=== PATIENT | female | born 1940 | race Caucasian/White ===

== ENCOUNTER 2018-03-23 12:30 | Emergency (ER) | payer MEDICARE ==
[~2018-03-23] VITALS: Ht 170.2 cm; Wt 73.0 kg
[~2018-03-23 12:30] MED LIST: ALLEGRA60 MG PO; CALTRATE 602 PO; CVS ALLERGY REL10 MG PO; DEPAKOTE SPRIN125 MG PO; EXCEDRIN MIGRAINE PO; MOTRIN800 MG/TAB PO; MULTIVITAMIN PO; SIMVASTATIN40 MG PO; TYLENOL 500MG TAB PO; VAGIFEM10 MCG VA; [UNRECOGNIZED DRUG - OTHER]
[2018-03-23] MEDS ORDERED: DIVALPROEX125 M1 PO (13:02)
[2018-03-23] MEDS ORDERED: MONTELUKAST SOD10 MG PO (13:02)
[2018-03-23] MEDS ORDERED: MULTI VIT PO (13:04)
[2018-03-23 15:00] VITALS: BP 134/86
== END 2018-03-23 15:00 | disposition home or self-care (01) ==
LOC: ED 12:30
DX: S40.011A Contusion of right shoulder, initial encounter (principal); M54.5 Low back pain; W10.9XXA Fall (on) (from) unspecified stairs and steps, initial encounter

== ENCOUNTER 2021-06-02 08:44 | Emergency (ER) | payer MEDICARE ==
[~2021-06-02] VITALS: Ht 170.2 cm; Wt 76.0 kg
[~2021-06-02 08:44] MED LIST changes: +DIVALPROEX125 M1 PO; +MONTELUKAST SOD10 MG PO; +MULTI VIT PO
[2021-06-02 11:17] VITALS: BP 125/83
== END 2021-06-02 11:17 | disposition home or self-care (01) ==
LOC: ED 08:44
PROC: 2Y41X5Z Packing of Nasal Region using Packing Material (ICD-10-PCS; principal; 2021-06-02)
DX: R04.0 Epistaxis (principal); E78.00 Pure hypercholesterolemia, unspecified

== ENCOUNTER 2021-06-03 11:12 | Emergency (ER) | payer MEDICARE ==
[~2021-06-03] VITALS: Ht 170.2 cm; Wt 75.0 kg
[2021-06-03 11:51] VITALS: BP 125/80
== END 2021-06-03 11:51 | disposition home or self-care (01) ==
LOC: ED 11:12
DX: Z48.00 Encounter for change or removal of nonsurgical wound dressing (principal); E78.00 Pure hypercholesterolemia, unspecified

== ENCOUNTER 2021-06-04 14:05 | Emergency (ER) | payer MEDICARE ==
[~2021-06-04] VITALS: Ht 170.2 cm; Wt 75.0 kg
[2021-06-04 16:40] VITALS: BP 133/89
== END 2021-06-04 16:40 | disposition home or self-care (01) ==
LOC: ED 14:05
DX: Z48.00 Encounter for change or removal of nonsurgical wound dressing (principal)